=== PATIENT | female | born 1955 | race Caucasian/White ===

== ENCOUNTER → 2019-09-09 08:39 | Outpatient (CLI) | payer OTHER, SELFPAY ==
--- NOTE | 2019-09-09 08:59 | DI.CT.S_ITS ---
PROCEDURE: CT ABDOMEN PELVIS WO/W CON INDICATIONS: HEMATURIA TECHNIQUE: Optional 5 mm thick noncontrast images acquired from the diaphragm to the symphysis pubis. After the administration of intravenous contrast, 5 mm thick images acquired from the diaphragm to the symphysis pubis after a 10-minute delay. 2 mm thick coronal and sagittal reformats were then performed of the kidneys and ureters. For radiation dose reduction, the following was used: automated exposure control, adjustment of mA and/or kV according to patient size. COMPARISON: None. FINDINGS: Image quality: Excellent. Lung bases: Minimal atelectasis. Heart size is normal. Breast implants. Small hiatal hernia. Urinary system: Both kidneys are normal in size, without hydronephrosis or nephrolithiasis on pre-contrast images. No perinephric fat stranding. There is normal bilateral renal enhancement. A subcentimeter renal cysts bilaterally. No solid mass. Renal calyces appear normal in morphology when filled with contrast. Opacified portions of both ureters demonstrate normal caliber. No ureteral filling defect within the well opacified ureters. Bladder wall thickness is normal. No calcified bladder stones. Other solid organs: Liver is normal in size and enhancement. A small rim calcified cysts or nodules at the inferior margin of the right lobe the liver, (2/36). No suspicious enhancement. Gallbladder is surgically absent. Biliary system is non dilated. Pancreas enhances normally. Spleen is normal in size and enhancement. No adrenal nodules. Peritoneum and bowel: Bowel loops demonstrate normal wall thickness and caliber. No free fluid or air. Appendix is normal. Nodes and vessels: No retroperitoneal or mesenteric adenopathy by size criteria. Aorta and inferior vena cava are normal in size. Abdominal wall: No ventral hernias. Pelvis: No pathologic free pelvic fluid. No inguinal hernias or adenopathy. Bones: No suspicious bony lesions. No vertebral body compression fractures. IMPRESSION: 1. No upper urinary tract filling defect. No solid renal mass. No kidney stones. 2. Small rim calcified cysts or nodules in the anterior aspect of the liver have a benign appearance. Dictated by: Ike House M.D. on 09/09/2019 at 11:11 Approved by: Ike House M.D. on 09/09/2019 at 11:23
== END ==
PROVIDERS: PCP Family Medicine; Visit Provider Family Medicine
DX: R31.9 Hematuria, unspecified (principal); K76.9 Liver disease, unspecified; Z90.49 Acquired absence of other specified parts of digestive tract
CPT/HCPCS: 74178; Q9967

== ENCOUNTER → 2024-08-04 14:26 | Outpatient (CLI) | payer MEDICARE, OTHER, SELFPAY | PROVIDERS: PCP Family Medicine; Visit Provider Nurse Practitioner Family | DX: R35.0 Frequency of micturition (principal); R30.0 Dysuria; N89.8 Other specified noninflammatory disorders of vagina | CPT/HCPCS: 87086; 87210 ==

== ENCOUNTER 2025-07-15 13:15 | Day surgery (SDC) | payer MEDICARE, OTHER, SELFPAY ==
--- NOTE | 2025-07-15 | PATH_ITS ---
[facility] Accession Number: [id number] No. of containers..02 Tissue . 01 Material submitted: . PART A: body - POLYP @ 35 PART B: body - POLYP @ 28 . 01 Diagnosis: A. COLON POLYP AT 35 CM: Tubular adenoma. . B. COLON POLYP AT 28 CM: Tubular adenoma. MRV 07/25/2025 1224 Local . 01 Electronically signed: . Simeon Fung MD, PhD, Pathologist NPI- [id number] . 01 Gross description: . Received are two formalin-filled containers both labeled with the patient's name. . A. In a container labeled polyp at 35. The specimen consists of one fragment of [place], soft tissue which measures 0.4 x 0.3 x 0.2 cm. The specimen is totally submitted in cassette A1. B. In a container labeled polyp at 28. The specimen consists of one fragment of [place], soft tissue which measures 0.6 x 0.6 x 0.5 cm. The specimen is totally submitted in cassette B1. ([id number]) /[facility] 07/21/2025 2344 Local . 01 Pathologist provided ICD-10: D12.6 . 01 CPT . 128705, [id number] Specimen Comment: A courtesy copy of this report has been sent to [facility] Pathology Performed at: [address] [id number] MD Anson Borja MD Phone: [phone]
--- NOTE | 2025-07-15 06:47 | PM.PREOP ---
Pre-operative Note Interval Note History & Physical reviewed/Exam performed by Physician: Yes Changes to H&P: No ASA Class (for procedural sedation): II
[2025-07-15 14:07] VITALS: BP 125/78; PULSE 84; RESP 18; TEMP 36.2; O2SAT 99
[2025-07-15] MEDS: LACTATED RINGERS 1,000 ML 42 ML IV (14:10)
--- NOTE | 2025-07-15 14:47 | P.OP.COLON_ITS ---
Operative Date/Time/Diagnoses Date of procedure: 07/15/25 Time of procedure: 14:47 Pre-op diagnosis: Rectal bleeding Post-op diagnosis: other (Polyps) Procedure & Clinicians Study performed: Diagnostic colonoscopy with polypectomy Same procedure(s) as scheduled: Yes Indications: 70yo F with rectal bleeding. Surgeon: Reyes Marti Anesthesia Type: MAC +/- Procedure Notes SCOAP/Timeout: Performed Procedure in detail: Colonoscopy Patient placed in left lateral recumbent position. Time out was performed. Procedural sedation was administered by anesthesia. Examination began with a thorough inspection of the perianal area. There was no evidence of fissures, fistulae, external hemorrhoids or cutaneous malignancy. The colonoscope was then placed into the rectum and the lumen was insufflated with carbon dioxide. The scope was carefully advanced forward. Ultimately the cecum was intubated and confirmed by identification of the ileocecal valve, the appendiceal orifice and the confluence of the taenia. The scope was then slowly withdrawn examining the colon thoroughly in all directions. In the rectum, retroflexion of the scope was performed for inspection of the distal rectum and anal canal. ?Significant colonoscopy findings: ?1. Quality of the preparation-good, Parrott 2-3, improved with irrigation/sucti on ?2. Two polyps removed; one at 35cm, 3mm, sessile, benign-appearing, removed with cold snare and retrieved for pathology; one at 28cm, 6mm polyp removed in identical manner Scope withdrawal time: 11 minutes Findings: polyp(s) Specimen(s): other (polyps) Estimated Blood Loss: 5 Complications: none Impression: Colon polyps Post-procedure Recommendations: Will call with biopsy results Plan for aftercare: PACU then home Follow up: as needed Disposition: PACU
[2025-07-15 14:50] VITALS: BP 106/59; PULSE 70; RESP 22; TEMP 36.2; O2SAT 96
[2025-07-15 14:54] VITALS: BP 118/56; PULSE 70; RESP 28; O2SAT 96
[2025-07-15 14:58] VITALS: BP 114/58; PULSE 67; RESP 23; O2SAT 95
[2025-07-15 15:00] VITALS: BP 104/59; PULSE 66; RESP 18; O2SAT 96
[2025-07-15 15:01] VITALS: TEMP 36.2
== END 2025-07-15 15:18 | disposition home or self-care (01) ==
PROVIDERS: PCP Family Medicine; Referring Provider Surgery; Visit Provider Surgery
PROC: 0DJD8ZZ Inspection of Lower Intestinal Tract, Via Natural or Artificial Opening Endoscopic (ICD-10-PCS; CPT 45378; principal; 2025-07-15 14:45)
DX: D12.6 Benign neoplasm of colon, unspecified (principal); K62.5 Hemorrhage of anus and rectum; E66.9 Obesity, unspecified; Z68.30 Body mass index [BMI] 30.0-30.9, adult
CPT/HCPCS: 45385; J2704; J7120